=== PATIENT | male | born 1990 | race Caucasian/White ===

== ENCOUNTER 2016-12-13 18:26 | Emergency (ER) | payer OTHER ==
[~2016-12-13] VITALS: Ht 177.8 cm; Wt 96.5 kg
[2016-12-13 18:51] VITALS: Ht 177.8 cm; Wt 96.5 kg
[2016-12-13] MEDS ORDERED: DIPHTH/TET/ACEL PERTUSS (ADULT) 0.5 ML VIAL IM* ONE (20:30)
--- NOTE | 2016-12-13 21:35 | ERD ---
ER Documentation Chief Complaint Date/Time DATE: 12/13/16 TIME: 21:32 Chief Complaint lac underneath left eye HPI This is a 25-year-old female that presents to the ER stating he got a laceration under his left eye. Patient was out in the garden when he scraped his eye with a nail. Area bled minimally and bleeding was controlled before arriving to the ER. Patient did not hurt his eye. He denies any vision changes or vision loss. She does not remember the last time he got a tetanus shot. Patient denies any pain at this time. ROS 12 point review of systems was done, all negative except per HPI. Medications Home Meds No Active Prescriptions or Reported Meds Allergies Allergies: Coded Allergies: Penicillins (Verified Allergy, Mild, 07/11/12) PMhx/Soc Medical and Surgical Hx: pt denies Medical Hx Anesthesia Reaction: No Hx Neurological Disorder: No Hx Respiratory Disorders: No Hx Cardiac Disorders: No Hx Psychiatric Problems: No Hx Alcohol Use: Yes (drank tequila alll night) Hx Substance Use: No Hx Tobacco Use: No Smoking Status: Never smoker Physical Exam Vitals Vital Signs Date Time Temp Pulse Resp B/P Pulse Ox O2 Delivery O2 Flow Rate FiO2 12/13/16 18:51 98.3 99 18 131/80 97 Physical Exam GENERAL: The patient is well developed and appropriate for usual state of health , in no apparent distress. HEENT: Atraumatic. Patient has a small 1.5 sooner linear superficial abrasion under the left eye CHEST: Clear to auscultation bilaterally. There are no rales, wheezes or rhonchi. HEART: Regular rate and rhythm. No murmurs, clicks, rubs or gallops. NEURO: Alert and oriented. Results 24 hrs Current Medications Medications (Trade) Dose Ordered Sig/Elias Route PRN Reason Start Time Stop Time Status Last Admin Dose Admin Diphtheria/ Tetanus/Acell Pertussis (Adacel) 0.5 ml ONCE ONCE IM* 12/13/16 20:30 12/13/16 20:31 DC 12/13/16 20:19 Procedures/MDM This is a 25-year-old male presents to the ER with a very superficial laceration to the left eye. Area was irrigated with copious amounts of normal saline explored there is no evidence of foreign body. Area was Steri-Stripped. Patient was given a TD shot without any complications. Patient needs to follow- up with his primary care doctor within 1-2 days or return to ER sooner symptoms worsen. My medical decision making [place] with the patient he understands and agrees with plan. Departure Diagnosis: Primary Impression: Laceration Condition: Stable Patient Instructions: Laceration, All Referrals: CALE MUNGUIA (PCP) Additional Instructions: Call your primary care doctor TOMORROW for an appointment during the next 1-2 days.See the doctor sooner or return here if your condition worsens before your appointment time. JUDY FIORE Dec 13, 2016 21:35
[2016-12-13 22:25] VITALS: BP 125/80; PULSE 75; RESP 18; TEMP 98.3
== END 2016-12-13 22:25 | disposition home or self-care (01) ==
LOC: FTE 18:26
DX: S01.81XA Laceration without foreign body of other part of head, initial encounter (principal); W45.0XXA Nail entering through skin, initial encounter; Y92.9 Unspecified place or not applicable; Z23 Encounter for immunization
CPT/HCPCS: 90471; 90715; Z7502

== ENCOUNTER 2017-08-10 10:43 | Emergency (ER) | payer OTHER ==
[~2017-08-10] VITALS: Wt 94.0 kg
[2017-08-10 11:56] LABS: ADD UMIC NO; UR ASCORBIC ACID NEGATIVE (NEGATIVE); UR BILIRUBIN (Dip) NEGATIVE (NEGATIVE); UR BLOOD (Dip) NEGATIVE (NEGATIVE); UR CLARITY CLEAR (CLEAR); UR COLOR YELLOW (YELLOW); UR GLUCOSE (Dip) NEGATIVE (NEGATIVE); UR KETONES (Dip) NEGATIVE (NEGATIVE); UR LEUKOCYTE ESTERASE (Dip) NEGATIVE Leu/ul (NEGATIVE); UR NITRITE (Dip) NEGATIVE (NEGATIVE); UR SPECIFIC GRAVITY (Dip) 1.014 (1.003-1.030); UR TOTAL PROTEIN (Dip) NEGATIVE (NEGATIVE); UR UROBILINOGEN (Dip) NEGATIVE (NEGATIVE)
[2017-08-10] MEDS ORDERED: HYDROCODONE/APAP (5/325) TAB PO ONE (12:00)
--- NOTE | 2017-08-10 12:07 | ERD ---
ER Documentation Chief Complaint Date/Time DATE: 08/10/17 TIME: 12:06 Chief Complaint ABD PAIN TO LOWER LEFT SIDE HPI This 26-year-old male who presents emergency department today complaining of left-sided abdominal pain. 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 Denies any fevers or chills, dysuria, vomiting or diarrhea. ROS All systems reviewed and are negative except as per history of present illness. Medications Home Meds Active Scripts Metronidazole* (Flagyl*) 500 Mg Tablet, 500 MG PO TID for 7 Days, TAB Prov:JELLY PALAFOX PA-C 08/10/17 Ciprofloxacin Hcl* (Ciprofloxacin Hcl*) 500 Mg Tablet, 500 MG PO BID for 7 Days , TAB Prov:JELLY PALAFOX PA-C 08/10/17 Ibuprofen* (Motrin*) 600 Mg Tab, 600 MG PO Q6, #30 TAB Prov:JELLY PALAFOX PA-C 08/10/17 Hydrocodone/Acetaminophen ([place] 5-325 Tablet) 1 Each Tablet, 1 TAB PO Q6H Y for PAIN, #10 TAB Prov:JELLY PALAFOX PA-C 08/10/17 Allergies Allergies: Coded Allergies: Penicillins (Verified Allergy, Mild, 07/11/12) PMhx/Soc Medical and Surgical Hx: pt denies Medical Hx, pt denies Surgical Hx Anesthesia Reaction: No Hx Neurological Disorder: No Hx Respiratory Disorders: No Hx Cardiac Disorders: No Hx Psychiatric Problems: No Hx Alcohol Use: Yes (12 pack beer qd) Hx Substance Use: No Hx Tobacco Use: Yes (3 cigs qd) Smoking Status: Current every day smoker Physical Exam Vitals Vital Signs Date Time Temp Pulse Resp B/P Pulse Ox O2 Delivery O2 Flow Rate FiO2 08/10/17 10:48 98.0 104 18 134/78 99 Physical Exam Const: NAD Head: Atraumatic Eyes: Normal Conjunctiva ENT: Normal External Ears, Nose and Mouth. Neck: Full range of motion..~ No meningismus. Resp: Clear to auscultation bilaterally Cardio: Regular rate and rhythm, no murmurs Abd: Soft,left lower quadrant pain non distended. Normal bowel sounds. No tenderness McBurney's. : Nontender testicles. Descended bilaterally. No evidence of hernia. Skin: No petechiae or rashes Back: No midline or flank tenderness Ext: No cyanosis, or edema Neur: Awake and alert Psych: Normal Mood and Affect Results 24 hrs Laboratory Tests Test 08/10/17 11:36 Urine Color YELLOW Urine Clarity CLEAR Urine pH 7.0 Urine Specific Godwin 1.014 Urine Ketones NEGATIVEmg/dL Urine Nitrite NEGATIVEmg/dL Urine Bilirubin NEGATIVEmg/dL Urine Urobilinogen NEGATIVEmg/dL Urine Leukocyte Esterase NEGATIVELeu/ul Urine Hemoglobin NEGATIVEmg/dL Urine Glucose NEGATIVEmg/dL Urine Total Protein NEGATIVEmg/dl Current Medications Medications (Trade) Dose Ordered Sig/Elias Route PRN Reason Start Time Stop Time Status Last Admin Dose Admin Acetaminophen/ Hydrocodone Bitart ([place] (5/325)) 1 tab ONCE ONCE PO 08/10/17 12:00 08/10/17 12:01 DC 08/10/17 11:38 DIAGNOSTIC IMAGING REPORT Patient: RYAN CLAY : 1990 Age: 26 Sex: M MR #: [id number] DOS: 08/10/17 1131 Ordering MD: JELLY PALAFOX PA-C Location: [facility] Room/Bed: PROCEDURE: CT abdomen and pelvis without contrast. CLINICAL INDICATION: Abdominal pain. TECHNIQUE: CT scan of the abdomen and pelvis without contrast was performed on a multi-slice CT scanner . Sagittal and coronal reformatted images were obtained from the axial source images. One or more of the following dose reduction techniques were used: - Automated exposure control. - Adjustment of the mA and/or kV according to patient size. Use of iterative reconstruction technique. DLP 1112.3 mGycm. CTDIvol 17.2 mGy COMPARISON: None FINDINGS: The lung bases are clear. There is limited evaluation of the solid viscera for lack of IV contrast. There is wall thickening of the sigmoid colon with adjacent fat stranding in an area of diverticulosis. There is no evidence for obstruction or appendicitis. There is no free air. There is trace left lower quadrant free fluid tracking into the cul-de-sac. There is no CT evidence for abscess. There is prominent hepatomegaly and fatty infiltration of the liver with no gross focal lesion or biliary ductal dilatation. There is a slightly nodular contour of the liver. The gallbladder is unremarkable without inflammation. The spleen is mildly enlarged. The adrenal glands are within normal limits without mass. The kidneys are symmetric bilaterally with no evidence of renal or ureteral calculi. There is no hydronephrosis or perinephric stranding. The pancreas is unremarkable without focal lesion or surrounding inflammatory changes. There are no enlarged lymph nodes. The aorta is unremarkable and there is no acute osseous abnormality. The prostate is grossly unremarkable. IMPRESSION: Wall thickening is seen with inflammation of the sigmoid colon consistent with diverticulitis. There is no CT evidence of perforation or obstruction or abscess. No evidence of renal or ureteral calculi or hydronephrosis. There is hepatosplenomegaly seen with diffuse fatty infiltration of the liver. There is also slightly nodular contour of the liver which could represent developing chronic liver disease. RPTAT: AA .Kelly Pandya MD, MD Date Time Electronically viewed and signed by .Kelly Pandya MD, MD on 08/10/2017 12:25 .J/ CC: JELLY PALAFOX. JONO Lopez/MDM Is a 26-year-old male who presents the emergency department today complaining of sudden onset left-sided abdominal pain after patient lifted a lawnmower out of the truck at work today. Patient is afebrile and otherwise well-appearing however he had significant tenderness in his left lower quadrant. Dr. Rodriguez did see and evaluate the patient and recommended a UA and CT abdomen pelvis noncontrast. UA is negative for infection or hematuria CT abdomen pelvis noncontrastShows wall thickening seen with inflammation of the sigmoid colon consistent with diverticulitis. There is no evidence of perforation or obstruction. No evidence of renal or ureteral calculi or hydronephrosis. Patient does have fatty liver. Gallbladder wall is unremarkable without inflammation. Patient symptoms at this time is consistent with abdominal pain and diverticulitis. There is no evidence of perforation or abscess. No evidence of hernia.. Patient is afebrile and otherwise well-appearing. He has no other symptoms. Do not feel the patient requires admission at this time. Patient given [place] here in the emergency department. He will be given a prescription for short course of [place], Cipro, Flagyl. At this time the patient is stable for discharge and outpatient management. Patient should follow up with their PCP in the next 1-2 days. They may return to the emergency department sooner for any persistent or worsening of symptoms. Patient understood and agreed with the plan. Departure Diagnosis: Primary Impression: Diverticulitis Diverticulitis site: large intestine Diverticulitis bleeding: without bleeding Diverticulitis complication: without perforation or abscess Qualified Code: K57.32 - Diverticulitis of large intestine without perforation or abscess without bleeding Additional Impression: Abdominal pain Abdominal location: left lower quadrant Qualified Code: R10.32 - Left lower quadrant pain Condition: Fair JELLY PALAFOX PA-C Aug 10, 2017 12:07
--- NOTE | 2017-08-10 12:26 | RADRPT ---
PROCEDURE: CT abdomen and pelvis without contrast. CLINICAL INDICATION: Abdominal pain. TECHNIQUE: CT scan of the abdomen and pelvis without contrast was performed on a multi-slice CT [facility] . Sagittal and coronal reformatted images were obtained from the axial source images. One or more of the following dose reduction techniques were used: - Automated exposure control. - Adjustment of the mA and/or kV according to patient size. Use of iterative reconstruction technique. DLP 1112.3 mGycm. CTDIvol 17.2 mGy COMPARISON: None FINDINGS: The lung bases are clear. There is limited evaluation of the solid viscera for lack of IV contrast. There is wall thickening of the sigmoid colon with adjacent fat stranding in an area of diverticulos is. There is no evidence for obstruction or appendicitis. There is no free air. There is trace left lower quadrant free fluid tracking into the cul-de-sac. There is no CT evidence for abscess. There is prominent hepatomegaly and fatty infiltration of the liver with no gross focal lesion or bi liary ductal dilatation. There is a slightly nodular contour of the liver. The gallbladder is unrema rkable without inflammation. The spleen is mildly enlarged. The adrenal glands are within normal limits without mass. The kidneys are symmetric bilaterally with no evidence of renal or ureteral calculi. There is no hy dronephrosis or perinephric stranding. The pancreas is unremarkable without focal lesion or surrounding inflammatory changes. There are n o enlarged lymph nodes. The aorta is unremarkable and there is no acute osseous abnormality. The prostate is grossly unremarkable. IMPRESSION: Wall thickening is seen with inflammation of the sigmoid colon consistent with diverticulitis. There is no CT evidence of perforation or obstruction or abscess. No evidence of renal or ureteral calculi or hydronephrosis. There is hepatosplenomegaly seen with diffuse fatty infiltration of the liver. There is also slightl y nodular contour of the liver which could represent developing chronic liver disease. RPTAT: AA .Kelly Pandya MD, Date Time Electronically viewed and signed by .Kelly Pandya MD, MD on 08/10/2017 12:25 .J/
[2017-08-10] MEDS ORDERED: HYDR-906 PO (12:57)
[2017-08-10] MEDS ORDERED: IBUP-1542 PO (12:58)
[2017-08-10] MEDS ORDERED: CIPR500T4 PO (12:58)
[2017-08-10] MEDS ORDERED: METR500T PO (12:58)
== END 2017-08-10 13:08 | disposition home or self-care (01) ==
LOC: FTE 10:43
DX: K57.32 Diverticulitis of large intestine without perforation or abscess without bleeding (principal); F17.210 Nicotine dependence, cigarettes, uncomplicated
CPT/HCPCS: 74176; 81003; Z7502; Z7610